=== PATIENT | female | born 1990 ===

== ENCOUNTER 2019-10-29 05:31 | Inpatient (IN) | payer OTHER ==
[2019-10-29] MEDS ORDERED: LACTATED RINGERS 2,000 ML ONE (06:42)
[2019-10-29] MEDS ORDERED: LIDOCAINE (2%) 20 MG/1 ML VIAL 20 ML MDV INFILTRATI ONE (06:58)
[2019-10-29] MEDS ORDERED: ePHEDrine SULFATE 50 MG/1 ML INJ IV PRN ×2 (06:58→12:44)
[2019-10-29] MEDS ORDERED: TERBUTALINE 1 MG/1 ML INJ SUB-Q PRN (06:58)
[2019-10-29] MEDS ORDERED: OXYTOCIN 20 UNIT/1000ML DRIP 20 UNITS/1,000 ML BAG IV SCH ×3 (07:00→19:00)
[2019-10-29] MEDS ORDERED: LACTATED RINGERS 1,000 ML IV SCH ×2 (07:00→18:00)
--- NOTE | 2019-10-29 07:06 | History and Physical Report ---
History of Present Illness Date of examination: 10/29/19 Date of admission: 10/29/2019 Chief complaint: Leaking of water. History of present illness: 28 year old female complains of leaking of water from vagina since 04:30 this AM. Patient reports contractions. LMP 01/24/2019. EDC 10/31/2019. Patient received care and records are available. significant for the following: hypothyroidism (patient has been taking levothyroxine 25 micrograms), gestational thrombocytopenia, and obesity. labs are as follows: O+, antibody screen negative, rubella immune, hepatitis B surface antigen negative, RPR nonreactive, HIV negative, gonorrhea negative, chlamydia negative, quad screen negative, GBS negative, 1 hour sugar test 94. Past History Past Medical History: thyroid disease, other (obesity) Past Surgical History: no surgical history [employer] History: denies: chlamydia, gonorrhea, hepatitis B, herpes, HIV, syphilis, trichomonas Family/Genetic History: hypertension Social history: , lives with family, full code. denies: smoking, alcohol abuse, prescription drug abuse, IV drug use - Obstetrical History Expected Date of Delivery: 10/31/19 Actual Gestation: 39 Week(s) 5 Day(s) : 1 Para: 0 Hx # Term Pregnancies: 0 Number of Pregnancies: 0 Spontaneous Abortions: 0 Induced : 0 Number of Living Children: 0 Medications and Allergies Allergies Allergy/AdvReac Type Severity Reaction Status Date / Time No Known Allergies Allergy Verified 10/29/19 05:38 Review of Systems All systems: negative (leaking of water from vagina, contractions) - Vital Signs Vital signs: Vital Signs Pulse BP Pulse Ox 95 H 116/77 98 10/29/19 05:45 10/29/19 05:45 10/29/19 05:45 Temp Pulse Resp BP Pulse Ox 92 H 18 111/72 95 10/29/19 06:55 10/29/19 06:33 10/29/19 06:47 10/29/19 06:55 - Physical Exam Abdomen: Positive: normal appearance, soft. Negative: distention, tenderness, guarding, rigidity Genitourinary (Female): Positive: normal external genitalia, normal perenium. Negative: perineal/vulvar lesions (no lesions seen on careful exam with bright light upon admission) Vagina: Positive: other (meconium stained fluid seen leaking from vagina) Uterus: Positive: enlarged. Negative: tender Anus/Rectum: Positive: normal perianal skin Extremities: Positive: normal - Obstetrical FHR: category 1 Uterine Contraction Monitor Mode: External Cervical Dilatation: 3 Cervical Effacement Percentage: 90 station: -3 Uterine Contraction Pattern: Regular Uterine Contraction Intensity: Moderate Results Result Diagrams: 10/29/19 05:42 All other labs normal. Assessment and Plan A: and 39 weeks, 5 days gestation. GBS negative. Spontaneous rupture of membranes with meconium stained fluid. Early labor. P: Admit. Continuous EFM.
[2019-10-29] MEDS ORDERED: ONDANSETRON 4 MG/2 ML INJ IV PRN ×2 (07:37→18:43)
[2019-10-29] MEDS: fentaNYL 100 MCG/2 ML INJ IV PRN ×2 (07:44→09:52)
[2019-10-29 07:47] LABS: Hematocrit 44.5 % (30.3-42.9); Hemoglobin 14.4 gm/dl (10.1-14.3); Mean Corpuscular HGB Conc 32 % (30-34); Mean Corpuscular Volume 88 fl (79-97); Red Blood Count 5.04 M/mm3 (3.65-5.03)
[2019-10-29 07:48] LABS: Platelet Count 128 K/mm3 (140-440)
--- NOTE | 2019-10-29 11:10 | Progress Note ---
Subjective - Subjective Date of service: 10/29/19 Principal diagnosis: active labor Interval history: FHT Category 1 Cervix 7cm/100%/-2 [place]: Q2 minutes plan for epidural /maternal well being reassuring Marycarmen MOSLEY Objective - Vital Signs Vital Signs: Vital Signs - 12hr 10/29/19 10/29/19 10/29/19 05:45 05:46 05:50 Pulse Rate 95 H 126 H 101 H Respiratory Rate Blood Pressure 116/77 Blood Pressure [Right] O2 Sat by Pulse 98 94 95 Oximetry 10/29/19 10/29/19 10/29/19 05:55 06:00 06:05 Pulse Rate 76 74 74 Respiratory Rate Blood Pressure 107/75 Blood Pressure [Right] O2 Sat by Pulse 96 96 96 Oximetry 10/29/19 10/29/19 10/29/19 06:10 06:15 06:20 Pulse Rate 74 110 H 85 Respiratory Rate Blood Pressure 110/76 Blood Pressure [Right] O2 Sat by Pulse 95 96 96 Oximetry 10/29/19 10/29/19 10/29/19 06:25 06:30 06:33 Pulse Rate 83 77 71 Respiratory 18 Rate Blood Pressure 119/81 Blood Pressure 119/81 [Right] O2 Sat by Pulse 96 97 97 Oximetry 10/29/19 10/29/19 10/29/19 06:35 06:40 06:45 Pulse Rate 80 73 79 Respiratory Rate Blood Pressure Blood Pressure [Right] O2 Sat by Pulse 97 95 97 Oximetry 10/29/19 10/29/19 10/29/19 06:47 06:50 06:51 Pulse Rate 73 83 87 Respiratory Rate Blood Pressure 111/72 Blood Pressure [Right] O2 Sat by Pulse 95 94 Oximetry 10/29/19 10/29/19 10/29/19 06:55 07:01 07:02 Pulse Rate 92 H 92 H 84 Respiratory Rate Blood Pressure 115/75 Blood Pressure [Right] O2 Sat by Pulse 95 98 Oximetry 10/29/19 10/29/19 10/29/19 07:06 07:11 07:15 Pulse Rate 77 79 85 Respiratory Rate Blood Pressure 112/75 Blood Pressure [Right] O2 Sat by Pulse 99 98 Oximetry 10/29/19 10/29/19 10/29/19 07:16 07:21 07:26 Pulse Rate 75 82 77 Respiratory Rate Blood Pressure Blood Pressure [Right] O2 Sat by Pulse 99 98 98 Oximetry 10/29/19 10/29/19 10/29/19 07:31 07:36 07:41 Pulse Rate 79 75 77 Respiratory Rate Blood Pressure 121/62 Blood Pressure [Right] O2 Sat by Pulse 99 96 98 Oximetry 10/29/19 10/29/19 10/29/19 07:44 07:46 07:47 Pulse Rate 79 76 Respiratory 20 Rate Blood Pressure 112/70 Blood Pressure [Right] O2 Sat by Pulse 97 Oximetry 10/29/19 10/29/19 10/29/19 07:50 07:51 07:56 Pulse Rate 76 73 70 Respiratory Rate Blood Pressure Blood Pressure [Right] O2 Sat by Pulse 94 96 94 Oximetry 10/29/19 10/29/19 10/29/19 08:01 08:03 08:06 Pulse Rate 75 71 73 Respiratory Rate Blood Pressure 117/72 Blood Pressure [Right] O2 Sat by Pulse 94 94 95 Oximetry 10/29/19 10/29/19 10/29/19 08:09 08:11 08:14 Pulse Rate 75 72 74 Respiratory Rate Blood Pressure Blood Pressure [Right] O2 Sat by Pulse 94 95 94 Oximetry 10/29/19 10/29/19 10/29/19 08:16 08:20 08:21 Pulse Rate 79 76 74 Respiratory Rate Blood Pressure 111/71 Blood Pressure [Right] O2 Sat by Pulse 95 93 95 Oximetry 10/29/19 10/29/19 10/29/19 08:26 08:30 08:31 Pulse Rate 73 74 68 Respiratory Rate Blood Pressure 118/72 Blood Pressure [Right] O2 Sat by Pulse 94 97 Oximetry 10/29/19 10/29/19 10/29/19 08:32 08:36 08:41 Pulse Rate 81 76 74 Respiratory Rate Blood Pressure Blood Pressure [Right] O2 Sat by Pulse 94 96 96 Oximetry 10/29/19 10/29/19 10/29/19 08:46 08:51 08:53 Pulse Rate 73 80 74 Respiratory Rate Blood Pressure 119/74 Blood Pressure [Right] O2 Sat by Pulse 93 96 94 Oximetry 10/29/19 10/29/19 10/29/19 08:56 08:58 09:00 Pulse Rate 82 77 74 Respiratory Rate Blood Pressure 97/56 Blood Pressure [Right] O2 Sat by Pulse 94 94 Oximetry 10/29/19 10/29/19 10/29/19 09:01 09:04 09:06 Pulse Rate 75 78 76 Respiratory Rate Blood Pressure Blood Pressure [Right] O2 Sat by Pulse 95 94 93 Oximetry 10/29/19 10/29/19 10/29/19 09:10 09:11 09:16 Pulse Rate 76 73 67 Respiratory Rate Blood Pressure Blood Pressure [Right] O2 Sat by Pulse 94 95 95 Oximetry 10/29/19 10/29/19 10/29/19 09:17 09:21 09:26 Pulse Rate 70 79 77 Respiratory Rate Blood Pressure 110/66 Blood Pressure [Right] O2 Sat by Pulse 94 94 Oximetry 10/29/19 10/29/19 10/29/19 09:30 09:31 09:36 Pulse Rate 75 78 88 Respiratory Rate Blood Pressure 114/68 Blood Pressure [Right] O2 Sat by Pulse 95 98 Oximetry 10/29/19 10/29/19 10/29/19 09:40 09:41 09:45 Pulse Rate 73 68 75 Respiratory Rate Blood Pressure 109/61 Blood Pressure [Right] O2 Sat by Pulse 94 94 Oximetry 10/29/19 10/29/19 10/29/19 09:46 09:48 09:51 Pulse Rate 74 74 82 Respiratory Rate Blood Pressure Blood Pressure [Right] O2 Sat by Pulse 95 94 95 Oximetry 10/29/19 10/29/19 10/29/19 09:52 09:56 09:57 Pulse Rate 74 74 Respiratory 18 Rate Blood Pressure Blood Pressure [Right] O2 Sat by Pulse 94 94 Oximetry 10/29/19 10/29/19 10/29/19 10:01 10:02 10:06 Pulse Rate 71 85 75 Respiratory Rate Blood Pressure 101/61 Blood Pressure [Right] O2 Sat by Pulse 96 92 92 Oximetry 10/29/19 10/29/19 10/29/19 10:07 10:11 10:13 Pulse Rate 70 79 69 Respiratory Rate Blood Pressure Blood Pressure [Right] O2 Sat by Pulse 93 94 93 Oximetry 10/29/19 10/29/19 10/29/19 10:15 10:16 10:19 Pulse Rate 74 78 73 Respiratory Rate Blood Pressure 94/54 Blood Pressure [Right] O2 Sat by Pulse 97 94 Oximetry 10/29/19 10/29/19 10/29/19 10:21 10:25 10:26 Pulse Rate 79 78 74 Respiratory Rate Blood Pressure Blood Pressure [Right] O2 Sat by Pulse 95 93 94 Oximetry 10/29/19 10/29/19 10/29/19 10:31 10:32 10:36 Pulse Rate 77 73 81 Respiratory Rate Blood Pressure 122/57 Blood Pressure [Right] O2 Sat by Pulse 99 94 98 Oximetry 10/29/19 10/29/19 10/29/19 10:38 10:41 10:45 Pulse Rate 81 81 79 Respiratory Rate Blood Pressure 106/58 Blood Pressure [Right] O2 Sat by Pulse 94 95 93 Oximetry 10/29/19 10/29/19 10/29/19 10:46 10:50 10:51 Pulse Rate 72 80 77 Respiratory Rate Blood Pressure Blood Pressure [Right] O2 Sat by Pulse 93 94 96 Oximetry 10/29/19 10/29/19 10/29/19 10:56 11:01 11:02 Pulse Rate 83 82 85 Respiratory Rate Blood Pressure 114/58 Blood Pressure [Right] O2 Sat by Pulse 95 97 Oximetry 10/29/19 11:06 Pulse Rate 72 Respiratory Rate Blood Pressure Blood Pressure [Right] O2 Sat by Pulse 96 Oximetry - Labs Labs: Abnormal Labs 10/29/19 05:42 RBC 5.04 H Hgb 14.4 H Hct 44.5 H Plt Count 128 L Laboratory Results - last 24 hr 10/29/19 10/29/19 05:42 08:40 WBC 7.3 RBC 5.04 H Hgb 14.4 H Hct 44.5 H MCV 88 MCH 29 MCHC 32 RDW 15.0 Plt Count 128 L Blood Type O POSITIVE Antibody Screen Negative
[2019-10-29] MEDS ORDERED: NALOXONE 2 MG/2 ML INJ IV PRN (12:44)
--- NOTE | 2019-10-29 12:53 | Anesthesia Consultation ---
Anesthesia Consult and Med Hx Date of service: 10/29/19 - Airway Anesthetic Teeth Evaluation: Poor ROM Head & Neck: Adequate Mental/Hyoid Distance: Adequate Mallampati Class: Class II Intubation Access Assessment: Probably Good - Pulmonary Exam CTA: Yes - Cardiac Exam Cardiac Exam: RRR - Pre-Operative Health Status ASA Pre-Surgery Classification: ASA2 Proposed Anesthetic Plan: Epidural - Pulmonary Hx Smoking: No Hx Asthma: No Hx Respiratory Symptoms: No SOB: No COPD: No Home Oxygen Therapy: No Hx Pneumonia: No Hx Sleep Apnea: No - Cardiovascular System Hx Hypertension: No Hx Coronary Artery Disease: No Hx Heart Attack/AMI: No Hx Angina: No Hx Percutaneous Transluminal Coronary Angioplasty (PTCA): No Hx Cardia Arrhythmia: No Hx Pacemaker: No Hx Internal Defibrillator: No Hx Valvular Heart Disease: No Hx Heart Murmur: No Hx Peripheral Vascular Disease: No - Central Nervous System Hx Neuromuscular Disorder: No Hx Seizures: No CVA: No Hx Back Pain: No Hx Psychiatric Problems: No - Gastrointestinal Hx Ulcer: No Hx Gastroesophageal Reflux Disease: No - Endocrine Hx Renal Disease: No Hx End Stage Renal Disease: No Hx Cirrhosis: No Hx Liver Disease: No Hx Insulin Dependent Diabetes: No Hx Non-Insulin Dependent Diabetes: No Hx Thyroid Disease: No Hx Hypothyroidism: No Hx Hyperthyroidism: No - Hematic Hx Anemia: No Hx Sickle Cell Disease: No - Other Systems Hx Alcohol Use: No Hx Substance Use: No Hx Cancer: No Hx Obesity: No
[2019-10-29] MEDS ORDERED: fentaNYL-BUPIV 2 MCG/ML-0.125% 200 MCG/100 ML BAG EPIDURAL SCH (13:00)
--- NOTE | 2019-10-29 14:25 | Event Note ---
Date: 10/29/19 Several deep variable FHR decelerations noted; position change, fluid bolus, and oxygen per face mask instituted. Variability moderate. Normal baseline FHR. SVE 9/-1 to -2. No response to position change. IUPC placed and amnioinfusion started. FSE placed. Dose of terbutaline given to slow contractions. Called Dr. Gil and notified her of FHR tracing and interventions performed. Dr. Gil on her way in to evaluate patient.
[2019-10-29] MEDS ORDERED: SODIUM CHLORIDE 0.9% 1000 ML 1,000 ML VG SCH (14:30)
--- NOTE | 2019-10-29 15:28 | Progress Note ---
Subjective - Subjective Date of service: 10/29/19 Principal diagnosis: active labor Interval history: Patient with deep variables to 80bpm lasting 30 seconds with return to baseline FHT improved with amnio-infusion and one dose of terbutaline cervix right lip,100%/+1, minimal caput, good descent with pushing patient placed on right side with O2 per face mask plan for CFM, expect will continue to monitor Maycol Gil MD Objective - Vital Signs Vital Signs: Vital Signs - 12hr 10/29/19 10/29/19 10/29/19 05:45 05:46 05:50 Pulse Rate 95 H 126 H 101 H Respiratory Rate Blood Pressure 116/77 Blood Pressure [Right] O2 Sat by Pulse 98 94 95 Oximetry 10/29/19 10/29/19 10/29/19 05:55 06:00 06:05 Pulse Rate 76 74 74 Respiratory Rate Blood Pressure 107/75 Blood Pressure [Right] O2 Sat by Pulse 96 96 96 Oximetry 10/29/19 10/29/19 10/29/19 06:10 06:15 06:20 Pulse Rate 74 110 H 85 Respiratory Rate Blood Pressure 110/76 Blood Pressure [Right] O2 Sat by Pulse 95 96 96 Oximetry 10/29/19 10/29/19 10/29/19 06:25 06:30 06:33 Pulse Rate 83 77 71 Respiratory 18 Rate Blood Pressure 119/81 Blood Pressure 119/81 [Right] O2 Sat by Pulse 96 97 97 Oximetry 10/29/19 10/29/19 10/29/19 06:35 06:40 06:45 Pulse Rate 80 73 79 Respiratory Rate Blood Pressure Blood Pressure [Right] O2 Sat by Pulse 97 95 97 Oximetry 10/29/19 10/29/19 10/29/19 06:47 06:50 06:51 Pulse Rate 73 83 87 Respiratory Rate Blood Pressure 111/72 Blood Pressure [Right] O2 Sat by Pulse 95 94 Oximetry 10/29/19 10/29/19 10/29/19 06:55 07:01 07:02 Pulse Rate 92 H 92 H 84 Respiratory Rate Blood Pressure 115/75 Blood Pressure [Right] O2 Sat by Pulse 95 98 Oximetry 10/29/19 10/29/19 10/29/19 07:06 07:11 07:15 Pulse Rate 77 79 85 Respiratory Rate Blood Pressure 112/75 Blood Pressure [Right] O2 Sat by Pulse 99 98 Oximetry 10/29/19 10/29/19 10/29/19 07:16 07:21 07:26 Pulse Rate 75 82 77 Respiratory Rate Blood Pressure Blood Pressure [Right] O2 Sat by Pulse 99 98 98 Oximetry 10/29/19 10/29/19 10/29/19 07:31 07:36 07:41 Pulse Rate 79 75 77 Respiratory Rate Blood Pressure 121/62 Blood Pressure [Right] O2 Sat by Pulse 99 96 98 Oximetry 10/29/19 10/29/19 10/29/19 07:44 07:46 07:47 Pulse Rate 79 76 Respiratory 20 Rate Blood Pressure 112/70 Blood Pressure [Right] O2 Sat by Pulse 97 Oximetry 10/29/19 10/29/19 10/29/19 07:50 07:51 07:56 Pulse Rate 76 73 70 Respiratory Rate Blood Pressure Blood Pressure [Right] O2 Sat by Pulse 94 96 94 Oximetry 10/29/19 10/29/19 10/29/19 08:01 08:03 08:06 Pulse Rate 75 71 73 Respiratory Rate Blood Pressure 117/72 Blood Pressure [Right] O2 Sat by Pulse 94 94 95 Oximetry 10/29/19 10/29/19 10/29/19 08:09 08:11 08:14 Pulse Rate 75 72 74 Respiratory Rate Blood Pressure Blood Pressure [Right] O2 Sat by Pulse 94 95 94 Oximetry 10/29/19 10/29/19 10/29/19 08:16 08:20 08:21 Pulse Rate 79 76 74 Respiratory Rate Blood Pressure 111/71 Blood Pressure [Right] O2 Sat by Pulse 95 93 95 Oximetry 10/29/19 10/29/19 10/29/19 08:26 08:30 08:31 Pulse Rate 73 74 68 Respiratory Rate Blood Pressure 118/72 Blood Pressure [Right] O2 Sat by Pulse 94 97 Oximetry 10/29/19 10/29/19 10/29/19 08:32 08:36 08:41 Pulse Rate 81 76 74 Respiratory Rate Blood Pressure Blood Pressure [Right] O2 Sat by Pulse 94 96 96 Oximetry 10/29/19 10/29/19 10/29/19 08:46 08:51 08:53 Pulse Rate 73 80 74 Respiratory Rate Blood Pressure 119/74 Blood Pressure [Right] O2 Sat by Pulse 93 96 94 Oximetry 10/29/19 10/29/1910/28/20 08:56 08:58 09:00 Pulse Rate 82 77 74 Respiratory Rate Blood Pressure 97/56 Blood Pressure [Right] O2 Sat by Pulse 94 94 Oximetry 10/29/19 10/29/19 10/29/19 09:01 09:04 09:06 Pulse Rate 75 78 76 Respiratory Rate Blood Pressure Blood Pressure [Right] O2 Sat by Pulse 95 94 93 Oximetry 10/29/19 10/29/19 10/29/19 09:10 09:11 09:16 Pulse Rate 76 73 67 Respiratory Rate Blood Pressure Blood Pressure [Right] O2 Sat by Pulse 94 95 95 Oximetry 10/29/19 10/29/19 10/29/19 09:17 09:21 09:26 Pulse Rate 70 79 77 Respiratory Rate Blood Pressure 110/66 Blood Pressure [Right] O2 Sat by Pulse 94 94 Oximetry 10/29/19 10/29/19 10/29/19 09:30 09:31 09:36 Pulse Rate 75 78 88 Respiratory Rate Blood Pressure 114/68 Blood Pressure [Right] O2 Sat by Pulse 95 98 Oximetry 10/29/19 10/29/19 10/29/19 09:40 09:41 09:45 Pulse Rate 73 68 75 Respiratory Rate Blood Pressure 109/61 Blood Pressure [Right] O2 Sat by Pulse 94 94 Oximetry 10/29/19 10/29/19 10/29/19 09:46 09:48 09:51 Pulse Rate 74 74 82 Respiratory Rate Blood Pressure Blood Pressure [Right] O2 Sat by Pulse 95 94 95 Oximetry 10/29/19 10/29/19 10/29/19 09:52 09:56 09:57 Pulse Rate 74 74 Respiratory 18 Rate Blood Pressure Blood Pressure [Right] O2 Sat by Pulse 94 94 Oximetry 10/29/19 10/29/19 10/29/19 10:01 10:02 10:06 Pulse Rate 71 85 75 Respiratory Rate Blood Pressure 101/61 Blood Pressure [Right] O2 Sat by Pulse 96 92 92 Oximetry 10/29/19 10/29/19 10/29/19 10:07 10:11 10:13 Pulse Rate 70 79 69 Respiratory Rate Blood Pressure Blood Pressure [Right] O2 Sat by Pulse 93 94 93 Oximetry 10/29/19 10/29/19 10/29/19 10:15 10:16 10:19 Pulse Rate 74 78 73 Respiratory Rate Blood Pressure 94/54 Blood Pressure [Right] O2 Sat by Pulse 97 94 Oximetry 10/29/19 10/29/19 10/29/19 10:21 10:25 10:26 Pulse Rate 79 78 74 Respiratory Rate Blood Pressure Blood Pressure [Right] O2 Sat by Pulse 95 93 94 Oximetry 10/29/19 10/29/19 10/29/19 10:31 10:32 10:36 Pulse Rate 77 73 81 Respiratory Rate Blood Pressure 122/57 Blood Pressure [Right] O2 Sat by Pulse 99 94 98 Oximetry 10/29/19 10/29/19 10/29/19 10:38 10:41 10:45 Pulse Rate 81 81 79 Respiratory Rate Blood Pressure 106/58 Blood Pressure [Right] O2 Sat by Pulse 94 95 93 Oximetry 10/29/19 10/29/19 10/29/19 10:46 10:50 10:51 Pulse Rate 72 80 77 Respiratory Rate Blood Pressure Blood Pressure [Right] O2 Sat by Pulse 93 94 96 Oximetry 10/29/19 10/29/19 10/29/19 10:56 11:01 11:02 Pulse Rate 83 82 85 Respiratory Rate Blood Pressure 114/58 Blood Pressure [Right] O2 Sat by Pulse 95 97 Oximetry 10/29/19 10/29/19 10/29/19 11:06 11:09 11:11 Pulse Rate 72 70 71 Respiratory Rate Blood Pressure Blood Pressure [Right] O2 Sat by Pulse 96 94 95 Oximetry 10/29/19 10/29/19 10/29/19 11:16 11:17 11:21 Pulse Rate 75 80 79 Respiratory Rate Blood Pressure 114/72 Blood Pressure [Right] O2 Sat by Pulse 94 96 Oximetry 10/29/19 10/29/19 10/29/19 11:24 11:26 11:30 Pulse Rate 93 H 84 97 H Respiratory Rate Blood Pressure Blood Pressure [Right] O2 Sat by Pulse 93 90 94 Oximetry 10/29/19 10/29/19 10/29/19 11:31 11:33 11:36 Pulse Rate 82 87 79 Respiratory Rate Blood Pressure 114/54 Blood Pressure [Right] O2 Sat by Pulse 93 87 Oximetry 10/29/19 10/29/19 10/29/19 11:38 11:42 11:43 Pulse Rate 84 83 94 H Respiratory Rate Blood Pressure Blood Pressure [Right] O2 Sat by Pulse 95 88 88 Oximetry 10/29/19 10/29/19 10/29/19 11:48 11:51 11:53 Pulse Rate 88 106 H 106 H Respiratory Rate Blood Pressure 88/52 Blood Pressure [Right] O2 Sat by Pulse 95 95 Oximetry 10/29/19 10/29/19 10/29/19 11:58 12:00 12:03 Pulse Rate 70 58 L 92 H Respiratory Rate Blood Pressure 127/73 97/56 Blood Pressure [Right] O2 Sat by Pulse 100 99 Oximetry 10/29/19 10/29/19 10/29/19 12:05 12:07 12:08 Pulse Rate 73 66 90 Respiratory Rate Blood Pressure 104/66 96/52 Blood Pressure [Right] O2 Sat by Pulse 100 Oximetry 10/29/19 10/29/19 10/29/19 12:09 12:11 12:13 Pulse Rate 89 98 H 62 Respiratory Rate Blood Pressure 85/54 87/58 Blood Pressure [Right] O2 Sat by Pulse 100 Oximetry 10/29/19 10/29/19 10/29/19 12:18 12:23 12:28 Pulse Rate 72 94 H 119 H Respiratory Rate Blood Pressure Blood Pressure [Right] O2 Sat by Pulse 100 100 100 Oximetry 10/29/19 10/29/19 10/29/19 12:33 12:38 12:43 Pulse Rate 120 H 104 H 106 H Respiratory Rate Blood Pressure 102/64 Blood Pressure [Right] O2 Sat by Pulse 99 95 99 Oximetry 10/29/19 10/29/19 10/29/19 12:44 12:48 12:53 Pulse Rate 121 H 79 113 H Respiratory Rate Blood Pressure Blood Pressure [Right] O2 Sat by Pulse 88 100 100 Oximetry 10/29/19 10/29/19 10/29/19 12:58 13:03 13:08 Pulse Rate 59 L 72 84 Respiratory Rate Blood Pressure Blood Pressure [Right] O2 Sat by Pulse 98 100 100 Oximetry 10/29/19 10/29/19 10/29/19 13:13 13:18 13:23 Pulse Rate 77 73 89 Respiratory Rate Blood Pressure 122/76 Blood Pressure [Right] O2 Sat by Pulse 98 100 100 Oximetry 10/29/19 10/29/19 10/29/19 13:28 13:33 13:38 Pulse Rate 113 H 76 73 Respiratory Rate Blood Pressure Blood Pressure [Right] O2 Sat by Pulse 99 99 98 Oximetry 10/29/19 10/29/19 10/29/19 13:42 13:43 13:48 Pulse Rate 73 73 79 Respiratory Rate Blood Pressure 128/77 Blood Pressure [Right] O2 Sat by Pulse 97 98 Oximetry 10/29/19 10/29/19 10/29/19 13:53 13:58 14:03 Pulse Rate 80 82 83 Respiratory Rate Blood Pressure Blood Pressure [Right] O2 Sat by Pulse 98 97 99 Oximetry 10/29/19 10/29/19 10/29/19 14:08 14:12 14:13 Pulse Rate 76 81 79 Respiratory Rate Blood Pressure 129/79 Blood Pressure [Right] O2 Sat by Pulse 99 98 Oximetry 10/29/19 10/29/19 10/29/19 14:18 14:23 14:28 Pulse Rate 81 98 H 82 Respiratory Rate Blood Pressure Blood Pressure [Right] O2 Sat by Pulse 97 98 99 Oximetry 10/29/19 10/29/19 10/29/19 14:33 14:38 14:42 Pulse Rate 78 103 H 117 H Respiratory Rate Blood Pressure 118/79 Blood Pressure [Right] O2 Sat by Pulse 98 98 Oximetry 10/29/19 10/29/19 10/29/19 14:43 14:48 14:53 Pulse Rate 97 H 122 H 98 H Respiratory Rate Blood Pressure Blood Pressure [Right] O2 Sat by Pulse 100 100 100 Oximetry 10/29/19 10/29/19 10/29/19 14:58 15:03 15:08 Pulse Rate 131 H 113 H 118 H Respiratory Rate Blood Pressure Blood Pressure [Right] O2 Sat by Pulse 98 99 98 Oximetry 10/29/19 10/29/19 10/29/19 15:12 15:13 15:18 Pulse Rate 116 H 97 H 110 H Respiratory Rate Blood Pressure 112/66 Blood Pressure [Right] O2 Sat by Pulse 99 100 Oximetry - Labs Labs: Abnormal Labs 10/29/19 05:42 RBC 5.04 H Hgb 14.4 H Hct 44.5 H Plt Count 128 L Laboratory Results - last 24 hr 10/29/19 10/29/19 05:42 08:40 WBC 7.3 RBC 5.04 H Hgb 14.4 H Hct 44.5 H MCV 88 MCH 29 MCHC 32 RDW 15.0 Plt Count 128 L Blood Type O POSITIVE Antibody Screen Negative
[2019-10-29] MEDS ORDERED: ACETAMINOPHEN 325 MG TAB PO ONE (16:00)
[2019-10-29] MEDS ORDERED: AMPICILLIN/NS 2 GM/100 ML 2 GM/100 ML BAG IV ONE (16:00)
[2019-10-29] MEDS ORDERED: OXYTOCIN DRIP 30,000 MILLIUNITS/500 ML BAG IV ONE (16:05)
--- NOTE | 2019-10-29 16:11 | Progress Note ---
Subjective - Subjective Date of service: 10/29/19 Principal diagnosis: active labor Interval history: variables resolved FHT 150,moderate variability [place] Q3-4 minutes Cervix 9cm/100%/-2 plan for oxytocin at 2mu/min recheck in one hour amp for prolonged rupture of membranes maternal/ well being reassuring overall. Maycol Gil MD Objective - Vital Signs Vital Signs: Vital Signs - 12hr 10/29/19 10/29/19 10/29/19 05:45 05:46 05:50 Pulse Rate 95 H 126 H 101 H Respiratory Rate Blood Pressure 116/77 Blood Pressure [Right] O2 Sat by Pulse 98 94 95 Oximetry 10/29/19 10/29/19 10/29/19 05:55 06:00 06:05 Pulse Rate 76 74 74 Respiratory Rate Blood Pressure 107/75 Blood Pressure [Right] O2 Sat by Pulse 96 96 96 Oximetry 10/29/19 10/29/19 10/29/19 06:10 06:15 06:20 Pulse Rate 74 110 H 85 Respiratory Rate Blood Pressure 110/76 Blood Pressure [Right] O2 Sat by Pulse 95 96 96 Oximetry 10/29/19 10/29/19 10/29/19 06:25 06:30 06:33 Pulse Rate 83 77 71 Respiratory 18 Rate Blood Pressure 119/81 Blood Pressure 119/81 [Right] O2 Sat by Pulse 96 97 97 Oximetry 10/29/19 10/29/19 10/29/19 06:35 06:40 06:45 Pulse Rate 80 73 79 Respiratory Rate Blood Pressure Blood Pressure [Right] O2 Sat by Pulse 97 95 97 Oximetry 10/29/19 10/29/19 10/29/19 06:47 06:50 06:51 Pulse Rate 73 83 87 Respiratory Rate Blood Pressure 111/72 Blood Pressure [Right] O2 Sat by Pulse 95 94 Oximetry 10/29/19 10/29/19 10/29/19 06:55 07:01 07:02 Pulse Rate 92 H 92 H 84 Respiratory Rate Blood Pressure 115/75 Blood Pressure [Right] O2 Sat by Pulse 95 98 Oximetry 10/29/19 10/29/19 10/29/19 07:06 07:11 07:15 Pulse Rate 77 79 85 Respiratory Rate Blood Pressure 112/75 Blood Pressure [Right] O2 Sat by Pulse 99 98 Oximetry 10/29/19 10/29/19 10/29/19 07:16 07:21 07:26 Pulse Rate 75 82 77 Respiratory Rate Blood Pressure Blood Pressure [Right] O2 Sat by Pulse 99 98 98 Oximetry 10/29/19 10/29/19 10/29/19 07:31 07:36 07:41 Pulse Rate 79 75 77 Respiratory Rate Blood Pressure 121/62 Blood Pressure [Right] O2 Sat by Pulse 99 96 98 Oximetry 10/29/19 10/29/19 10/29/19 07:44 07:46 07:47 Pulse Rate 79 76 Respiratory 20 Rate Blood Pressure 112/70 Blood Pressure [Right] O2 Sat by Pulse 97 Oximetry 10/29/19 10/29/19 10/29/19 07:50 07:51 07:56 Pulse Rate 76 73 70 Respiratory Rate Blood Pressure Blood Pressure [Right] O2 Sat by Pulse 94 96 94 Oximetry 10/29/19 10/29/19 10/29/19 08:01 08:03 08:06 Pulse Rate 75 71 73 Respiratory Rate Blood Pressure 117/72 Blood Pressure [Right] O2 Sat by Pulse 94 94 95 Oximetry 10/29/19 10/29/19 10/29/19 08:09 08:11 08:14 Pulse Rate 75 72 74 Respiratory Rate Blood Pressure Blood Pressure [Right] O2 Sat by Pulse 94 95 94 Oximetry 10/29/19 10/29/19 10/29/19 08:16 08:20 08:21 Pulse Rate 79 76 74 Respiratory Rate Blood Pressure 111/71 Blood Pressure [Right] O2 Sat by Pulse 95 93 95 Oximetry 10/29/19 10/29/19 10/29/19 08:26 08:30 08:31 Pulse Rate 73 74 68 Respiratory Rate Blood Pressure 118/72 Blood Pressure [Right] O2 Sat by Pulse 94 97 Oximetry 10/29/19 10/29/19 10/29/19 08:32 08:36 08:41 Pulse Rate 81 76 74 Respiratory Rate Blood Pressure Blood Pressure [Right] O2 Sat by Pulse 94 96 96 Oximetry 10/29/19 10/29/19 10/29/19 08:46 08:51 08:53 Pulse Rate 73 80 74 Respiratory Rate Blood Pressure 119/74 Blood Pressure [Right] O2 Sat by Pulse 93 96 94 Oximetry 10/29/19 10/29/19 10/29/19 08:56 08:58 09:00 Pulse Rate 82 77 74 Respiratory Rate Blood Pressure 97/56 Blood Pressure [Right] O2 Sat by Pulse 94 94 Oximetry 10/29/19 10/29/19 10/29/19 09:01 09:04 09:06 Pulse Rate 75 78 76 Respiratory Rate Blood Pressure Blood Pressure [Right] O2 Sat by Pulse 95 94 93 Oximetry 10/29/19 10/29/19 10/29/19 09:10 09:11 09:16 Pulse Rate 76 73 67 Respiratory Rate Blood Pressure Blood Pressure [Right] O2 Sat by Pulse 94 95 95 Oximetry 10/29/19 10/29/19 10/29/19 09:17 09:21 09:26 Pulse Rate 70 79 77 Respiratory Rate Blood Pressure 110/66 Blood Pressure [Right] O2 Sat by Pulse 94 94 Oximetry 10/29/19 10/29/19 10/29/19 09:30 09:31 09:36 Pulse Rate 75 78 88 Respiratory Rate Blood Pressure 114/68 Blood Pressure [Right] O2 Sat by Pulse 95 98 Oximetry 10/29/19 10/29/19 10/29/19 09:40 09:41 09:45 Pulse Rate 73 68 75 Respiratory Rate Blood Pressure 109/61 Blood Pressure [Right] O2 Sat by Pulse 94 94 Oximetry 10/29/19 10/29/19 10/29/19 09:46 09:48 09:51 Pulse Rate 74 74 82 Respiratory Rate Blood Pressure Blood Pressure [Right] O2 Sat by Pulse 95 94 95 Oximetry 10/29/19 10/29/19 10/29/19 09:52 09:56 09:57 Pulse Rate 74 74 Respiratory 18 Rate Blood Pressure Blood Pressure [Right] O2 Sat by Pulse 94 94 Oximetry 10/29/19 10/29/19 10/29/19 10:01 10:02 10:06 Pulse Rate 71 85 75 Respiratory Rate Blood Pressure 101/61 Blood Pressure [Right] O2 Sat by Pulse 96 92 92 Oximetry 10/29/19 10/29/19 10/29/19 10:07 10:11 10:13 Pulse Rate 70 79 69 Respiratory Rate Blood Pressure Blood Pressure [Right] O2 Sat by Pulse 93 94 93 Oximetry 10/29/19 10/29/19 10/29/19 10:15 10:16 10:19 Pulse Rate 74 78 73 Respiratory Rate Blood Pressure 94/54 Blood Pressure [Right] O2 Sat by Pulse 97 94 Oximetry 10/29/19 10/29/19 10/29/19 10:21 10:25 10:26 Pulse Rate 79 78 74 Respiratory Rate Blood Pressure Blood Pressure [Right] O2 Sat by Pulse 95 93 94 Oximetry 10/29/19 10/29/19 10/29/19 10:31 10:32 10:36 Pulse Rate 77 73 81 Respiratory Rate Blood Pressure 122/57 Blood Pressure [Right] O2 Sat by Pulse 99 94 98 Oximetry 10/29/19 10/29/19 10/29/19 10:38 10:41 10:45 Pulse Rate 81 81 79 Respiratory Rate Blood Pressure 106/58 Blood Pressure [Right] O2 Sat by Pulse 94 95 93 Oximetry 10/29/19 10/29/19 10/29/19 10:46 10:50 10:51 Pulse Rate 72 80 77 Respiratory Rate Blood Pressure Blood Pressure [Right] O2 Sat by Pulse 93 94 96 Oximetry 10/29/19 10/29/19 10/29/19 10:56 11:01 11:02 Pulse Rate 83 82 85 Respiratory Rate Blood Pressure 114/58 Blood Pressure [Right] O2 Sat by Pulse 95 97 Oximetry 10/29/19 10/29/19 10/29/19 11:06 11:09 11:11 Pulse Rate 72 70 71 Respiratory Rate Blood Pressure Blood Pressure [Right] O2 Sat by Pulse 96 94 95 Oximetry 10/29/19 10/29/19 10/29/19 11:16 11:17 11:21 Pulse Rate 75 80 79 Respiratory Rate Blood Pressure 114/72 Blood Pressure [Right] O2 Sat by Pulse 94 96 Oximetry 10/29/19 10/29/19 10/29/19 11:24 11:26 11:30 Pulse Rate 93 H 84 97 H Respiratory Rate Blood Pressure Blood Pressure [Right] O2 Sat by Pulse 93 90 94 Oximetry 10/29/19 10/29/19 10/29/19 11:31 11:33 11:36 Pulse Rate 82 87 79 Respiratory Rate Blood Pressure 114/54 Blood Pressure [Right] O2 Sat by Pulse 93 87 Oximetry 10/29/19 10/29/19 10/29/19 11:38 11:42 11:43 Pulse Rate 84 83 94 H Respiratory Rate Blood Pressure Blood Pressure [Right] O2 Sat by Pulse 95 88 88 Oximetry 10/29/19 10/29/19 10/29/19 11:48 11:51 11:53 Pulse Rate 88 106 H 106 H Respiratory Rate Blood Pressure 88/52 Blood Pressure [Right] O2 Sat by Pulse 95 95 Oximetry 10/29/19 10/29/19 10/29/19 11:58 12:00 12:03 Pulse Rate 70 58 L 92 H Respiratory Rate Blood Pressure 127/73 97/56 Blood Pressure [Right] O2 Sat by Pulse 100 99 Oximetry 10/29/19 10/29/19 10/29/19 12:05 12:07 12:08 Pulse Rate 73 66 90 Respiratory Rate Blood Pressure 104/66 96/52 Blood Pressure [Right] O2 Sat by Pulse 100 Oximetry 10/29/19 10/29/19 10/29/19 12:09 12:11 12:13 Pulse Rate 89 98 H 62 Respiratory Rate Blood Pressure 85/54 87/58 Blood Pressure [Right] O2 Sat by Pulse 100 Oximetry 10/29/19 10/29/19 10/29/19 12:18 12:23 12:28 Pulse Rate 72 94 H 119 H Respiratory Rate Blood Pressure Blood Pressure [Right] O2 Sat by Pulse 100 100 100 Oximetry 10/29/19 10/29/19 10/29/19 12:33 12:38 12:43 Pulse Rate 120 H 104 H 106 H Respiratory Rate Blood Pressure 102/64 Blood Pressure [Right] O2 Sat by Pulse 99 95 99 Oximetry 10/29/19 10/29/19 10/29/19 12:44 12:48 12:53 Pulse Rate 121 H 79 113 H Respiratory Rate Blood Pressure Blood Pressure [Right] O2 Sat by Pulse 88 100 100 Oximetry 10/29/19 10/29/19 10/29/19 12:58 13:03 13:08 Pulse Rate 59 L 72 84 Respiratory Rate Blood Pressure Blood Pressure [Right] O2 Sat by Pulse 98 100 100 Oximetry 10/29/19 10/29/19 10/29/19 13:13 13:18 13:23 Pulse Rate 77 73 89 Respiratory Rate Blood Pressure 122/76 Blood Pressure [Right] O2 Sat by Pulse 98 100 100 Oximetry 10/29/19 10/29/19 10/29/19 13:28 13:33 13:38 Pulse Rate 113 H 76 73 Respiratory Rate Blood Pressure Blood Pressure [Right] O2 Sat by Pulse 99 99 98 Oximetry 10/29/19 10/29/1920 13:42 13:43 13:48 Pulse Rate 73 73 79 Respiratory Rate Blood Pressure 128/77 Blood Pressure [Right] O2 Sat by Pulse 97 98 Oximetry 10/29/19 10/29/19 10/29/19 13:53 13:58 14:03 Pulse Rate 80 82 83 Respiratory Rate Blood Pressure Blood Pressure [Right] O2 Sat by Pulse 98 97 99 Oximetry 10/29/19 10/29/19 10/29/19 14:08 14:12 14:13 Pulse Rate 76 81 79 Respiratory Rate Blood Pressure 129/79 Blood Pressure [Right] O2 Sat by Pulse 99 98 Oximetry 10/29/19 10/29/19 10/29/19 14:18 14:23 14:28 Pulse Rate 81 98 H 82 Respiratory Rate Blood Pressure Blood Pressure [Right] O2 Sat by Pulse 97 98 99 Oximetry 10/29/19 10/29/19 10/29/19 14:33 14:38 14:42 Pulse Rate 78 103 H 117 H Respiratory Rate Blood Pressure 118/79 Blood Pressure [Right] O2 Sat by Pulse 98 98 Oximetry 10/29/19 10/29/19 10/29/19 14:43 14:48 14:53 Pulse Rate 97 H 122 H 98 H Respiratory Rate Blood Pressure Blood Pressure [Right] O2 Sat by Pulse 100 100 100 Oximetry 10/29/19 10/29/19 10/29/19 14:58 15:03 15:08 Pulse Rate 131 H 113 H 118 H Respiratory Rate Blood Pressure Blood Pressure [Right] O2 Sat by Pulse 98 99 98 Oximetry 10/29/19 10/29/19 10/29/19 15:12 15:13 15:18 Pulse Rate 116 H 97 H 110 H Respiratory Rate Blood Pressure 112/66 Blood Pressure [Right] O2 Sat by Pulse 99 100 Oximetry 10/29/19 10/29/19 10/29/19 15:23 15:28 15:33 Pulse Rate 117 H 113 H 91 H Respiratory Rate Blood Pressure Blood Pressure [Right] O2 Sat by Pulse 100 100 99 Oximetry 10/29/19 10/29/19 10/29/19 15:38 15:42 15:43 Pulse Rate 116 H 116 H 110 H Respiratory Rate Blood Pressure 110/63 Blood Pressure [Right] O2 Sat by Pulse 100 99 Oximetry 10/29/19 10/29/19 10/29/19 15:48 15:53 15:58 Pulse Rate 97 H 109 H 115 H Respiratory Rate Blood Pressure Blood Pressure [Right] O2 Sat by Pulse 98 99 99 Oximetry 10/29/19 16:03 Pulse Rate 94 H Respiratory Rate Blood Pressure Blood Pressure [Right] O2 Sat by Pulse 99 Oximetry - Labs Labs: Abnormal Labs 10/29/19 05:42 RBC 5.04 H Hgb 14.4 H Hct 44.5 H Plt Count 128 L Laboratory Results - last 24 hr 10/29/19 10/29/19 05:42 08:40 WBC 7.3 RBC 5.04 H Hgb 14.4 H Hct 44.5 H MCV 88 MCH 29 MCHC 32 RDW 15.0 Plt Count 128 L Blood Type O POSITIVE Antibody Screen Negative
[2019-10-29] MEDS ORDERED: OXYTOCIN DRIP 30 UNITS/500 ML BAG IV SCH (17:00)
[2019-10-29] MEDS ORDERED: MINERAL OIL 30 ML ORAL LIQD ONE (17:10)
[2019-10-29] MEDS ORDERED: METOCLOPRAMIDE 10 MG/2 ML INJ ONE (17:29)
[2019-10-29] MEDS ORDERED: FAMOTIDINE 20 MG/2 ML INJ IV ONE ×2 (17:29→18:00)
[2019-10-29] MEDS ORDERED: ceFAZolin/Water 2 GM/20 ML 2 GM/20 ML SYRINGE IV ONE (17:30)
[2019-10-29] MEDS ORDERED: LIDOCAINE 2%/EPINEPHRINE 1:200,000 VIAL (20 ML) INFILTRATI ONE (17:31)
[2019-10-29] MEDS ORDERED: DEXMEDETOMIDINE 200 MCG/2 ML VIAL IV ONE (17:31)
--- NOTE | 2019-10-29 17:31 | Event Note ---
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
[2019-10-29] MEDS ORDERED: propofoL 200 MG/20 ML VIAL IV ONE (17:46)
[2019-10-29] MEDS ORDERED: SODIUM CHLORIDE 0.9% IRR 1,500 ML BOTTLE IR ONE (17:50)
[2019-10-29] MEDS ORDERED: WATER FOR IRRIG STERILE 1,500 ML BOTTLE IR ONE (17:50)
[2019-10-29] MEDS ORDERED: ceFAZolin/STERILE WATER 2 GM/20 ML SYRINGE IV ONE (17:50)
[2019-10-29] MEDS ORDERED: KETOROLAC 30 MG/1 ML INJ ONE (17:59)
[2019-10-29] MEDS ORDERED: SODIUM BICARB 8.4% 50 MEQ/50 ML VIAL IV ONE (17:59)
[2019-10-29] MEDS ORDERED: ONDANSETRON 4 MG/2 ML INJ ONE (17:59)
[2019-10-29] MEDS ORDERED: SUCCINYLCHOLINE CHLORIDE 200 MG/10 ML INJ MDV ONE ×2 (17:59→18:17)
[2019-10-29] MEDS ORDERED: BICITRA ORAL LIQD 30ML PO ONE (18:00)
[2019-10-29] MEDS ORDERED: METOCLOPRAMIDE 10 MG/2 ML INJ IV ONE (18:00)
--- NOTE | 2019-10-29 18:39 | Procedure Note ---
OB Delivery Note - Delivery Date of Delivery: 10/29/19 Surgeon: JUVE MARVIN Estimated blood loss: 500cc - Section Preop diagnosis: arrest of descent, nonreassuring FHR tracing Postop diagnosis: same section procedure: primary low transverse Disposition: PACU Complications: none Narrative: Preoperative diagnosis: NRFHT, arrest of descent Postoperative diagnosis: same Procedure: primary low transverse section via pfannenstiel incision Surgeon : Dr Juve Marvin Assist: scrub Anesthesia: epidural Complications: none Drains: sidhu to gravity EBL 500ml IV fluids: 1200ml Urine output: 100ml Findings:normal uterus, tubes and ovaries bilaterally. Viable female,weight 3229gms, 8,9. Procedure: informed consent taken in 2007 with family present. All questions and concerns addressed. R/B/C reviewed. She was taken to the OR where excellent spinal anesthesia was given. She was placed in the dorsal supine position with a leftward tilt. She was prepped and draped in a sterile fashion. A time out was verified. An Daniella clamp was used to assure adequate analgesia. A Pfannenstiel skin incision was made, taken down through the underlying fascia sharply and extended laterally with curved Merida scissors. The superior and inferior aspect of the fascial incision was grasped with Brenden clamps and the rectus muscles dissected off sharply. The abdomen was entered sharply in the midline and extended laterally and inferiorly sharply with good visualization of the underlying structures. The vesicouterine peritoneum was grasped with Turkmen forceps and incised sharply with Metzenbaum scissors and extended laterlaly sharply. The uterine incision was made sharply with a scalpel, taken down to the amnion and extended inferiorly and superiorly bluntly. The bladder blade removed. Baby delivered atraumatically in cephalic presentation, no nuchal cord. Spontaneous cry at delivery.The cord was clamped and cut and baby handed to waiting NICU staff. An intact placenta with three vessel cord delivered manually. The uterus cleared of all clots and debris. The uterus was exteriorized and the uterine incision closed with 2 layers of 0-Vicryl. The abdomen was irrigated with warm normal saline and the uterus placed back in the abdomen. A second look at the uterine incision assured excellent hemostasis. The peritoneum closed with 3-0 vicryl. The rectus muscles approximated with 3- 0 vicryl with good hemostasis. The fascia closed with 0-Vicryl in the usual fashion, and the underlying structures closed with interrupted suture of 2-0-Vicryl. The skin closed with mary and a pressure dressing applied. Mom and baby stable to . Patient hemodynamically stable in PACU. EBL 500ml Marycarmen MOSLEY
[2019-10-29] MEDS ORDERED: MAGNESIUM HYDROXIDE (MOM) ORAL LIQD UDC PO PRN (18:43)
[2019-10-29] MEDS ORDERED: MORPHINE 4 MG/1 ML INJ IV PRN (18:43)
[2019-10-29] MEDS ORDERED: WITCH HAZEL/ GLYCERIN PAD TP PRN (18:43)
[2019-10-29] MEDS ORDERED: LANOLIN/ZINC/DIMETHICONE (LANSINOH) 7 GM TP PRN (18:43)
[2019-10-29] MEDS ORDERED: SIMETHICONE 80 MG CHEW TAB PO PRN (18:43)
[2019-10-29] MEDS ORDERED: NALOXONE 0.4 MG/1 ML INJ IV PRN (18:43)
[2019-10-29] MEDS ORDERED: MORPHINE 2 MG/1 ML INJ IV PRN (18:43)
--- NOTE | 2019-10-29 19:23 | Post Anesthesia Evaluation ---
- Post Anesthesia Evaluation Patient Participated: Yes Airway Patent: Yes Stable Respiratory Function: Yes Nausea/Vomiting: No Temp > 96.8F: Yes Pain Manageable: Yes Adequeate Hydration: Yes Anesthesia Complications: No Block Receding Appropriately: Yes Patient on Ventilator: No
--- NOTE | 2019-10-29 19:23 | Anesthesia Day of Surgery ---
Anesthesia Day of Surgery - Day of Surgery Patient Examined: Yes Patient H&P Reviewed: Yes Patient is NPO: Yes Beta Blockers: No Cardiac Clearance: No Pulmonary Clearance: No Yaniv's Test: N/A
[2019-10-29] MEDS ORDERED: HYDROmorphone 1 MG/1 ML INJ IV PRN (19:25)
[2019-10-30] MEDS: HYDROcodone/ACETAMINOPHEN 5-325 MG TAB PO PRN ×3 (01:56→15:49)
[2019-10-30 05:10] LABS: Basophils % (Auto) 0.2 % (0.0-1.8); Hematocrit 30.1 % (30.3-42.9); Hemoglobin 10.1 gm/dl (10.1-14.3); Lymphocytes # (Auto) 0.6 K/mm3 (1.2-5.4); Lymphocytes % (Auto) 5.4 % (13.4-35.0); Mean Corpuscular HGB Conc 34 % (30-34); Mean Corpuscular Volume 86 fl (79-97); Monocytes # (Auto) 0.8 K/mm3 (0.0-0.8); Monocytes % (Auto) 6.9 % (0.0-7.3); Platelet Count 101 K/mm3 (140-440); Red Blood Count 3.49 M/mm3 (3.65-5.03); Red Cell Distribution Width 14.1 % (13.2-15.2)
[2019-10-30] MEDS: IBUPROFEN 800 MG TAB PO PRN ×2 (06:07→21:30)
[2019-10-30 09:42] LABS: Hematocrit 30.1 % (30.3-42.9)
--- NOTE | 2019-10-30 11:28 | Progress Note ---
Assessment and Plan A: /postop day 1 S/P LTCS. Anemia. P: Supplement with oral iron when tolerating regular diet. Encouraged patient to ambulate. Subjective - Subjective Date of service: 10/30/19 Principal diagnosis: /postop day 1 S/P LTCS Interval history: /postop day 1 S/P LTCS. Patient is doing well. Voiding without difficulty and ambulating well. Tolerating po liquids. Patient states she has not passed gas yet. Patient reports small amount of lochia. Patient denies headache, chest pain, cough, shortness of breath, or leg pain. Patient reports: appetite normal, voiding normally, pain well controlled, flatus, ambulating normally, no dizzy ambulation, no nauseated : doing well Objective - Vital Signs Latest vital signs: Vital Signs Temp Pulse Resp BP BP Pulse Ox 10/30/19 08:20 98 F 91 H 18 96/53 10/30/19 04:50 98.3 F 92 H 18 102/56 97 10/30/19 01:17 99.0 F 113 H 18 89/48 96 10/29/19 20:30 98.1 F 99 H 18 97/54 98 10/29/19 20:00 97.8 F 103 H 20 108/78 96 10/29/19 19:45 107 H 17 99 10/29/19 19:30 75 13 100/53 97 10/29/19 19:25 94/50 10/29/19 19:20 88/47 10/29/19 19:15 91 H 11 L 79/37 96 10/29/19 19:10 92 H 15 90/46 96 10/29/19 19:05 97.6 F 105 H 14 74/25 95 10/29/19 19:00 89 29 H 87/57 95 10/29/19 17:43 98.9 F 82 18 10/29/19 17:23 115 H 97 10/29/19 17:18 114 H 93 10/29/19 17:13 122 H 119/68 98 10/29/19 17:08 110 H 98 10/29/19 17:03 121 H 96 10/29/19 16:58 126 H 98 10/29/19 16:53 88 97 10/29/19 16:48 86 98 10/29/19 16:44 113 H 109/67 03/21/20 16:43 116 H 97 03//20 16:38 106 H 98 03/20 16:33 115 H 98 03/20 16:28 111 H 99 03/20 16:23 110 H 99 03//20 16:18 116 H 98 03/20 16:13 102 H 114/68 99 03//20 16:08 90 98 03/20 16:03 94 H 99 03/20 15:58 115 H 99 03/20 15:53 109 H 99 03/20 15:48 97 H 98 03/20 15:43 110 H 99 03/20 15:42 116 H 110/63 03/20 15:38 116 H 100 03/20 15:33 91 H 99 03/20 15:28 113 H 100 03/20 15:23 117 H 100 03/20 15:18 110 H 100 03/20 15:13 97 H 99 03/20 15:12 116 H 112/66 03/20 15:08 118 H 98 03/20 15:03 113 H 99 03/20 14:58 131 H 98 03/20 14:53 98 H 100 10/28/20 14:48 122 H 100 10/28/20 14:43 97 H 100 10/28/20 14:42 117 H 118/79 03/20 14:38 103 H 98 03/20 14:33 78 98 03/20 14:28 82 99 03/20 14:23 98 H 98 03/20 14:18 81 97 03/21/20 14:13 79 98 03/21/20 14:12 81 129/79 03/21/20 14:08 76 99 03/21/20 14:03 83 99 03/21/20 13:58 82 97 03/21/20 13:53 80 98 03/21/20 13:48 79 98 03/21/20 13:43 73 97 03/21/20 13:42 73 128/77 03/21/20 13:38 73 98 03/21/20 13:33 76 99 03/21/20 13:28 113 H 99 0321/20 13:23 89 100 03/21/20 13:18 73 100 10/29/19 13:13 77 122/76 98 10/29/19 13:08 84 100 10/29/19 13:03 72 100 10/29/19 12:58 59 L 98 10/29/19 12:53 113 H 100 10/29/19 12:48 79 100 10/29/19 12:44 121 H 88 10/29/19 12:43 106 H 102/64 99 10/29/19 12:38 104 H 95 10/29/19 12:33 120 H 99 10/29/19 12:28 119 H 100 10/29/19 12:23 94 H 100 10/29/19 12:18 72 100 10/29/19 12:13 62 100 10/29/19 12:11 98 H 87/58 10/29/19 12:09 89 85/54 10/29/19 12:08 90 100 10/29/19 12:07 66 96/52 10/29/19 12:05 73 104/66 10/29/19 12:03 92 H 97/56 99 10/29/19 12:00 58 L 127/73 10/29/19 11:58 70 100 10/29/19 11:53 106 H 95 10/29/19 11:51 106 H 88/52 10/29/19 11:48 88 95 10/29/19 11:43 94 H 88 10/29/19 11:42 83 88 10/29/19 11:38 84 95 10/29/19 11:36 79 87 10/29/19 11:33 87 93 10/29/19 11:31 82 114/54 10/29/19 11:30 97 H 94 10/29/19 11:26 84 90 Intake and Output 10/29/19 10/30/19 10/30/19 23:59 07:59 15:59 Intake Total 950 120 320 Output Total 50 1000 600 Balance 900 -880 -280 Intake: IV 950 Oral 120 320 Output: Urine 50 1000 600 Indwelling Catheter 1000 Void 600 Other: Total, Intake Amount 120 320 Total, Output Amount 600 600 # Voids Void 1 Estimated Blood Loss 500 - Exam Cardiovascular: Present: Regular rate, Normal S1, Normal S2, No murmurs Lungs: Present: Clear to auscultation Abdomen: Present: normal appearance, soft, normal bowel sounds. Absent: distention, tenderness, guarding, rigidity Uterus: Present: normal, firm, fundal height below umbilicus. Absent: bogginess, tenderness Extremities: Present: normal, edema (mild pedal edema). Absent: tenderness Incision: Present: normal, dry, intact, dressed - Labs Labs: Abnormal lab results 10/30/19 10/30/19 Range/Units 04:30 08:57 WBC 11.9 H (4.5-11.0) K/mm3 RBC 3.49 L (3.65-5.03) M/mm3 Hgb 10.0 L (10.1-14.3) gm/dl Hct 30.1 L D 30.1 L (30.3-42.9) % Plt Count 101 L (140-440) K/mm3 Lymph % (Auto) 5.4 L (13.4-35.0) % Lymph # 0.6 L (1.2-5.4) K/mm3 Seg Neutrophils % 87.5 H (40.0-70.0) % Seg Neutrophils # 10.4 H (1.8-7.7) K/mm3
[2019-10-30] MEDS ORDERED: FERROUS SULFATE 325 MG TAB PO ONE (22:00)
[2019-10-31] MEDS: HYDROcodone/ACETAMINOPHEN 5-325 MG TAB PO PRN ×2 (03:40→12:43)
--- NOTE | 2019-10-31 11:11 | Progress Note ---
Assessment and Plan - Patient Problems (1) S/P primary low transverse Current Visit: Yes Status: Acute Plan to address problem: POD 2 - stable Continue routine postop orders Ambulation encouraged, as tolerated Anticipate discharge 11/01/19 if bleeding at right incision site stops Patient to follow-up at [facility] as needed or in 1 week for incision check (2) Anemia due to blood loss, acute Current Visit: Yes Status: Acute Plan to address problem: Asymptomatic Continue iron therapy Subjective - Subjective Date of service: 10/31/19 Principal diagnosis: POD #2; s/p Primary LTCS Patient reports: appetite normal, voiding normally, pain well controlled, flatus, bowel movement, ambulating normally, no dizzy ambulation Mallard: in NICU Objective - Vital Signs Latest vital signs: Vital Signs Temp Pulse Resp BP BP Pulse Ox 10/31/19 08:37 98.1 F 87 18 101/63 98 10/31/19 02:05 98.9 F 110 H 20 99/58 95 10/30/19 15:45 97.9 F 90 18 92/58 10/30/19 12:02 98 F 90 18 97/57 Intake and Output 10/30/19 10/31/19 10/31/19 23:59 07:59 15:59 Intake Total 240 Balance 240 Intake: Oral 120 Intake, Free Water 120 Other: Total, Intake Amount 120 # Voids Void 1 - Exam Cardiovascular: Present: Regular rate Lungs: Present: Clear to auscultation, Normal air movement Abdomen: Present: normal appearance, soft Vulva: both: normal Uterus: Present: normal, firm Incision: Present: normal, skin (on right side: light bleeding present, steri strips replaced) Comments: scant lochia
[2019-10-31] MEDS: IBUPROFEN 800 MG TAB PO PRN ×2 (14:17→23:24)
--- NOTE | 2019-10-31 19:09 | Discharge Summary ---
Providers - Providers Date of Admission: 10/29/19 05:32 Date of discharge: 11/01/19 Attending physician: ARA CAMPOS MD Primary care physician: ARA CAMPOS MD Hospitalization Reason for admission: active labor, IUP at term Delivery: Procedure: primary low transverse Episiotomy: none Laceration: none Incision: normal, dry, intact, other (steri strips in place) Other procedures: none complications: none Discharge diagnosis: IUP at term delivered [place] baby: female Hospital course: Uncomplicated Condition at discharge: Stable Disposition: DC-01 TO HOME OR SELFCARE - Discharge Diagnoses (1) S/P primary low transverse Status: Acute (2) Anemia due to blood loss, acute Status: Acute Comment: Asymptomatic Continue taking your iron pills and vitamin at home Eat iron-rich foods Plan - Discharge Medications Prescriptions: Ibuprofen [Motrin] 600 mg PO Q8H PRN #60 tablet PRN Reason: Pain oxyCODONE /ACETAMINOPHEN [Percocet 5/325] 1 tab PO Q6HR PRN #20 tablet PRN Reason: Pain - Provider Discharge Summary Activity: routine, no sex for 6 weeks, no heavy lifting 4 weeks, no strenuous exercise Diet: routine Instructions: routine Additional instructions: [] Smoking cessation referral if applicable(refer to patient education folder for contact #) [] Refer to [facility] Booklet Call your doctor immediately for: * Fever > 100.5 * Heavy vaginal bleeding ( >1 pad per hour) * Severe persistent headache * Shortness of breath * Reddened, hot, painful area to leg or breast * Drainage or odor from incision. * Keep incision clean and dry at all times and follow doctor's instructions regarding bathing/showering - Follow up plan Follow up: ARA CAMPOS MD [Primary Care Provider] - 7 Days (Follow-up at [facility] as needed or in 1 week for incision check.)
[2019-11-01] MEDS: IBUPROFEN 800 MG TAB PO PRN (05:45)
[2019-11-01] MEDS ORDERED: LEVOTHYROXINE 75 MCG TAB PO SCH (06:00)
[2019-11-01] MEDS ORDERED: LEVOTHYROXINE 150 MCG TAB PO SCH (06:00)
[2019-11-01] MEDS: HYDROcodone/ACETAMINOPHEN 5-325 MG TAB PO PRN (08:21)
[2019-11-01 11:37] VITALS: BP 105/79
== END 2019-11-01 11:14 | disposition home or self-care (01) | DRG 787 ==
LOC: TRG 05:31 → LD 05:32 → OB 21:09
PROVIDERS: ADMIT Obstetrics & Gynecology; ATTEND Obstetrics & Gynecology
PROC: 10D00Z1 Extraction of Products of Conception, Low, Open Approach (ICD-10-PCS; principal; 2019-10-29)
DX: O76 Abnormality in fetal heart rate and rhythm complicating labor and delivery (principal); D62 Acute posthemorrhagic anemia; O99.02 Anemia complicating childbirth; O62.1 Secondary uterine inertia; O99.284 Endocrine, nutritional and metabolic diseases complicating childbirth; E03.9 Hypothyroidism, unspecified; O99.214 Obesity complicating childbirth; O77.0 Labor and delivery complicated by meconium in amniotic fluid; E66.9 Obesity, unspecified; Z3A.39 39 weeks gestation of pregnancy; Z37.0 Single live birth; Z82.49 Family history of ischemic heart disease and other diseases of the circulatory system
CPT/HCPCS: 36415; 85014; 85018; 85025; 85027; 86850; 86900; 86901; 88307; G0378; J0290; J0330; J0690; J1885; J2405; J2590; J2704; J2765; J3010; J3105; J3490; J7120

== ENCOUNTER 2021-07-22 04:08 | Inpatient (IN) | payer OTHER ==
[2021-07-22] MEDS ORDERED: FAMOTIDINE 20 MG/2 ML INJ IV ONE (04:56)
[2021-07-22] MEDS ORDERED: METOCLOPRAMIDE 10 MG/2 ML INJ IV ONE (04:56)
[2021-07-22] MEDS ORDERED: BICITRA ORAL LIQD 30ML PO ONE (04:56)
[2021-07-22] MEDS: LACTATED RINGERS 1,000 ML IV SCH ×2 (05:00→10:32)
[2021-07-22] MEDS ORDERED: OXYTOCIN DRIP 30 UNITS/500 ML BAG IV SCH (05:00)
[2021-07-22] MEDS ORDERED: ceFAZolin/STERILE WATER 2 GM/20 ML SYRINGE IV NR (05:33)
[2021-07-22 05:39] LABS: Basophils # (Auto) 0.1 K/mm3 (0.0-0.1); Basophils % (Auto) 0.9 % (0.0-1.8); Eosinophils % (Auto) 0.3 % (0.0-4.3); Hematocrit 35.1 % (30.3-42.9); Hemoglobin 10.8 gm/dl (10.1-14.3); Lymphocytes # (Auto) 1.4 K/mm3 (1.2-5.4); Mean Corpuscular HGB Conc 31 % (30-34); Mean Corpuscular Volume 73 fl (79-97); Monocytes # (Auto) 0.6 K/mm3 (0.0-0.8); Monocytes % (Auto) 6.8 % (0.0-7.3)
[2021-07-22 05:40] LABS: Red Cell Distribution Width 21.8 % (13.2-15.2)
[2021-07-22] MEDS ORDERED: ONDANSETRON 4 MG/2 ML INJ ONE (05:43)
[2021-07-22 05:44] LABS: Platelet Count 117 K/mm3 (140-440)
[2021-07-22] MEDS ORDERED: BUTORPHANOL 2 MG/1 ML INJ IV PRN ×2 (05:44)
[2021-07-22] MEDS ORDERED: PROMETHAZINE 25 MG RECT SUPP PR PRN ×2 (05:44→08:00)
[2021-07-22] MEDS ORDERED: LOPERAMIDE 2 MG CAP PO PRN (05:44)
[2021-07-22] MEDS ORDERED: miSOPROStol 200 MCG TAB PR PRN (05:44)
[2021-07-22] MEDS ORDERED: ePHEDrine SULFATE 50 MG/1 ML INJ IV PRN (05:44)
[2021-07-22] MEDS ORDERED: ACETAMINOPHEN 325 MG TAB PO PRN (05:44)
[2021-07-22] MEDS ORDERED: CARBOPROST TROMETHAMINE 250 MCG/1 ML INJ IM PRN (05:44)
[2021-07-22] MEDS ORDERED: NalbUPHINE 10 MG/1 ML INJ IV PRN (05:44)
[2021-07-22] MEDS ORDERED: OXYTOCIN 10 UNIT/1 ML INJ IM PRN (05:44)
[2021-07-22] MEDS ORDERED: fentaNYL 100 MCG/2 ML INJ IV PRN (05:44)
[2021-07-22] MEDS ORDERED: NALOXONE 0.4 MG/1 ML INJ IV PRN ×2 (05:44→08:00)
[2021-07-22] MEDS ORDERED: METHYLERGONOVINE MALEATE 0.2 MG/ML VIAL IM PRN (05:44)
[2021-07-22] MEDS ORDERED: BUPIVACAINE/PF (0.5%) 5 MG/1 ML 30 ML VIAL INFILTRATI ONE (05:45)
--- NOTE | 2021-07-22 05:46 | Anesthesia Day of Surgery ---
Anesthesia Day of Surgery - Day of Surgery Patient Examined: Yes Patient H&P Reviewed: Yes Patient is NPO: Yes Beta Blockers: No Cardiac Clearance: No Pulmonary Clearance: No Yaniv's Test: N/A
--- NOTE | 2021-07-22 05:47 | Anesthesia Consultation ---
Anesthesia Consult and Med Hx Date of service: 07/22/21 - Airway Anesthetic Teeth Evaluation: Good ROM Head & Neck: Adequate Mental/Hyoid Distance: Adequate Mallampati Class: Class II Intubation Access Assessment: Probably Good - Pulmonary Exam CTA: Yes - Cardiac Exam Cardiac Exam: RRR - Pre-Operative Health Status ASA Pre-Surgery Classification: ASA2, Emergency Proposed Anesthetic Plan: Spinal Nerve Block: TAP - Pulmonary Hx Smoking: No Hx Asthma: No Hx Respiratory Symptoms: No SOB: No COPD: No Hx Pneumonia: No Hx Sleep Apnea: No - Cardiovascular System Hx Hypertension: No Hx Coronary Artery Disease: No Hx Heart Attack/AMI: No Hx Angina: No Hx Percutaneous Transluminal Coronary Angioplasty (PTCA): No Hx Cardia Arrhythmia: No Hx Pacemaker: No Hx Internal Defibrillator: No Hx Valvular Heart Disease: No Hx Heart Murmur: No Hx Peripheral Vascular Disease: No - Central Nervous System Hx Neuromuscular Disorder: No Hx Seizures: No CVA: No Hx Back Pain: No Hx Psychiatric Problems: No - Gastrointestinal Hx Ulcer: No Hx Gastroesophageal Reflux Disease: No - Endocrine Hx Renal Disease: No Hx End Stage Renal Disease: No Hx Cirrhosis: No Hx Liver Disease: No Hx Insulin Dependent Diabetes: No Hx Non-Insulin Dependent Diabetes: No Hx Thyroid Disease: No Hx Hypothyroidism: Yes (ON MEDS) Hx Hyperthyroidism: No - Hematic Hx Anemia: Yes Hx Sickle Cell Disease: No - Other Systems Hx Alcohol Use: No Hx Substance Use: No Hx Cancer: No Hx Obesity: No - Additional Comments Anesthesia Medical History Comments: previous c/s x1 in labor
--- NOTE | 2021-07-22 05:56 | History and Physical Report ---
History of Present Illness Date of examination: 07/22/21 Chief complaint: previous section active labor spontaneous rupture of membranes History of present illness: 30yo at 40.0 weeks , previous c/sectionx1 with contractions and ruptured membranes. Past History Past Medical History: no pertinent history Past Surgical History: section Social history: no significant social history - Obstetrical History Expected Date of Delivery: 07/22/21 Actual Gestation: 40 Week(s) 0 Day(s) : 2 Para: 1 Medications and Allergies Allergies Allergy/AdvReac Type Severity Reaction Status Date / Time No Known Allergies Allergy Verified 10/29/19 05:38 Home Medications Medication Instructions Recorded Confirmed Last Taken Type Ibuprofen [Motrin] 600 mg PO Q8H PRN #60 tablet 10/30/19 Unknown Rx Levothyroxine [Synthroid] 75 mcg PO QAM 10/30/19 10/30/19 10/28/19 History oxyCODONE /ACETAMINOPHEN [Percocet 1 tab PO Q6HR PRN #20 tablet 10/30/19 Unknown Rx 5/325] Active Meds: Active Medications Cefazolin Sodium (Cefazolin/Sterile Water 2 Gm/20 Ml Syringe) 2 gm IV PREOP NR Stop: 07/22/21 06:59 Lactated Ringer's (Lactated Ringers) 1,000 mls @ 2,250 mls/hr IV PREOP PRANAV Stop: 07/23/21 05:27 Oxytocin/Sodium Chloride (Pitocin/Ns 30 Unit/500ml) 30 units in 500 mls @ 0 mls/hr IV TITR PRANAV; Protocol - Vital Signs Vital signs: Vital Signs Pulse Pulse Ox 72 84 07/22/21 04:31 07/22/21 04:31 Temp Pulse Resp BP Pulse Ox 98.7 F 98 H 20 119/78 100 07/22/21 04:44 07/22/21 05:47 07/22/21 04:44 07/22/21 04:36 07/22/21 05:47 - Physical Exam Breasts: Positive: deferred Cardiovascular: Regular rate Lungs: Positive: Clear to auscultation Abdomen: Positive: normal appearance, soft, normal bowel sounds Uterus: Positive: enlarged Extremities: Positive: normal Deep Tendon Reflex Grade: Normal +2 - Obstetrical FHR: category 1 Cervical Dilatation: 2 Cervical Effacement Percentage: 80 station: -3 Uterine Contraction Frequency (min): 2 Uterine Contraction Pattern: Regular Results Result Diagrams: 07/22/21 04:57 Abnormal lab results 07/22/21 Range/Units 04:57 MCV 73 L (79-97) fl MCH 22 L (28-32) pg RDW 21.8 H (13.2-15.2) % Plt Count 117 L (140-440) K/mm3 Seg Neutrophils % 77.0 H (40.0-70.0) % All other labs normal. 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
[2021-07-22] MEDS ORDERED: WATER FOR IRRIG STERILE 1,500 ML BOTTLE IR ONE (06:00)
[2021-07-22] MEDS ORDERED: SODIUM CHLORIDE 0.9% IRR 1,500 ML BOTTLE IR ONE (06:00)
[2021-07-22] MEDS ORDERED: ceFAZolin/STERILE WATER 2 GM/20 ML SYRINGE IV ONE (06:00)
--- NOTE | 2021-07-22 06:00 | Procedure Note ---
OB Delivery Note - Delivery Date of Delivery: 07/22/21 Surgeon: JUVE MARVIN - Section Preop diagnosis: other (labor,spontaneous rupture of membranes) Postop diagnosis: same section procedure: repeat low transverse Disposition: PACU Complications: none Narrative: Preop diagnosis: IUP at 40.0 weeks, previous c/sectionx1, SROM,labor Postop diagnosis: Same, delivered Procedure: Repeat low transverse section via Pfannenstiel incision Surgeon: Dr. Juve Marvin Anesthesia spinal Complications none EBL 947ml IV fluids 1500mL Urine output 200mL, clear Drains Armstrong to gravity Findings: Viable male with weight 3550gms and 8/9, normal uterus tubes and ovaries bilaterally Procedure: Patient was consented in OB triage, taken to the operating room where she received excellent spinal anesthesia. She was then placed in the dorsal supine position with a leftward tilt. The abdomen was prepped and draped in a sterile fashion, and a timeout was verified. Adequate anesthesia was confirmed prior to the skin incision. A Pfannenstiel skin incision was made with a scalpel taken down to the underlying structures and the fascia was incised in the midline. The incision was extended laterally with curved Merida scissors, the superior and inferior aspects of the fascial incisions were grasped with Brenden clamps and the rectus muscles dissected sharply. The abdomen was entered bluntly in the midline carried down inferiorly with good visualization of the bladder. The vesicouterine peritoneum was tented with Samoan forceps and incised in the midline with Metzenbaum scissors and the vesicouterine peritoneum taken down sharply. The uterine incision was then made sharply with a scalpel. The inferior and superior aspect of the uterine incisions were extended bluntly, the baby's head was delivered atraumatically. The remainder of the delivery was uncomplicated, no nuchal cord. The cord was clamped and cut and baby handed to waiting NICU team. An intact placenta with three-vessel cord delivered manually. The uterus was then cleared of all clots and debris and the uterus exteriorized. The uterine incision was closed in 2 layers of 0 vicryl with excellent hemostasis. The abdomen was then irrigated with warm normal saline and the uterus placed back into the abdomen atraumatically. A second look at the uterine incision assured hemostasis. The peritoneum was closed with 3-0 Vicryl, the rectus muscles approximated with 3-0 Vicryl, and the fascia closed with 0 Vicryl in the usual fashion. The subcuticular structures were closed with interrupted sutures of 3-0 Vicryl and the skin closed with mary second to extensive subcuticular bleeding and prophylaxis from seroma or incisional hematoma. A pressure dressing was applied A pressure dressing was applied. All sponge needle and instrument counts were correct x2. There were no complications. Mom and baby stable to PACU. EBL 947 mL Maycol Marvin MD
[2021-07-22] MEDS ORDERED: LACTATED RINGERS 1,000 ML ONE ×2 (06:27→07:19)
[2021-07-22] MEDS ORDERED: dexAMETHasone 20 MG/5 ML VIAL ONE (06:27)
[2021-07-22] MEDS ORDERED: PHENYLEPHRINE/NS 1,000 MCG/10 ML SYRINGE (OR USE) IV ONE (06:30)
[2021-07-22] MEDS ORDERED: KETOROLAC 30 MG/1 ML INJ ONE (06:30)
[2021-07-22] MEDS ORDERED: ePHEDrine SULFATE 50 MG/1 ML INJ ONE (06:48)
[2021-07-22] MEDS ORDERED: LANOLIN/ZINC/DIMETHICONE (LANSINOH) 7 GM TP PRN (07:13)
[2021-07-22] MEDS ORDERED: KETOROLAC 30 MG/1 ML INJ IV PRN ×2 (07:13→08:00)
[2021-07-22] MEDS ORDERED: IBUPROFEN 600 MG TAB PO PRN (07:13)
[2021-07-22] MEDS ORDERED: HYDROcodone/ACETAMINOPHEN 5-325 MG TAB PO PRN (07:30)
[2021-07-22] MEDS ORDERED: WITCH HAZEL/ GLYCERIN PAD TP PRN (07:30)
[2021-07-22] MEDS ORDERED: ACETAMINOPHEN 650 MG RECT SUPP PR PRN (08:00)
[2021-07-22] MEDS ORDERED: MORPHINE 4 MG/1 ML INJ IV PRN (08:00)
[2021-07-22] MEDS ORDERED: ONDANSETRON 4 MG/2 ML INJ IV PRN (08:00)
[2021-07-22] MEDS ORDERED: MORPHINE 2 MG/1 ML INJ IV PRN (08:00)
[2021-07-22 19:03] LABS: Hematocrit 28.4 % (30.3-42.9); Hemoglobin 8.5 gm/dl (10.1-14.3)
[2021-07-22 20:53] LABS: Hematocrit 28.3 % (30.3-42.9); Hemoglobin 8.7 gm/dl (10.1-14.3); Mean Corpuscular HGB Conc 31 % (30-34); Mean Corpuscular Volume 73 fl (79-97); Platelet Count 106 K/mm3 (140-440); Red Blood Count 3.87 M/mm3 (3.65-5.03)
[2021-07-22 20:54] LABS: Red Cell Distribution Width 21.1 % (13.2-15.2)
[2021-07-22] MEDS: IBUPROFEN 800 MG TAB PO PRN (21:09)
--- NOTE | 2021-07-22 21:29 | Event Note ---
Date: 07/22/21 PLT= 117 at 4:57 a.m. today. PLT= 106 at 6:31 p.m. kerri. This patient is clinically asymptomatic.
[2021-07-22] MEDS ORDERED: SENNOSIDES 8.6 MG TAB PO PRN (22:00)
[2021-07-22 23:43] LABS: Total Cells Counted 100
[2021-07-22 23:45] LABS: Anisocytosis 1+; Ovalocytes Few; Platelet Estimate Consistent w Auto
[2021-07-23] MEDS: oxyCODONE /ACETAMINOPHEN 5-325MG TAB PO PRN ×3 (02:43→14:34)
[2021-07-23] MEDS ORDERED: LEVOTHYROXINE 112 MCG TAB PO SCH (06:00)
[2021-07-23] MEDS: IBUPROFEN 800 MG TAB PO PRN (07:06)
[2021-07-23] MEDS: LEVOTHYROXINE 75 MCG TAB PO SCH (07:08)
--- NOTE | 2021-07-23 10:23 | Post Anesthesia Evaluation ---
- Post Anesthesia Evaluation Patient Participated: Yes Airway Patent: Yes Stable Respiratory Function: Yes Nausea/Vomiting: No Temp > 96.8F: Yes Pain Manageable: Yes Adequeate Hydration: Yes Anesthesia Complications: No Block Receding Appropriately: Yes
--- NOTE | 2021-07-23 10:59 | Progress Note ---
Assessment and Plan POD#1 C/S with pain not well controlled; Thrombocytopenia improved since yesterday, hgb decreased. 1. Nurse told to give pt po pain med and will re-eval later 2. Pt to be given oral gas med 3. routine post op care 4. May give iron after pt has flatus BID and vitamin C for asymptomatic anemia. Will repeat CBC in am for both platelet and hgb trends plan of care discussed with pt and all questions encouraged and answered Subjective Date of service: 07/23/21 Principal diagnosis: POD#1 C/S with thrombocytopenia Interval history: Pt c/o pain and no flatus. Pt was ambulant in the room when I evaluated her. Denies nausea or vomiting or fever or chills. Pt is voiding without difficulty. Vag bleed less than a period. pt is bottle feeding Objective - Constitutional Vitals: Vital Signs - 12hr 07/23/21 07/23/21 07/23/21 00:05 00:15 01:30 Temperature 98.4 F Pulse Rate 76 Respiratory 18 Rate Blood Pressure Blood Pressure 94/58 [Left] O2 Sat by Pulse 97 Oximetry O2 Sat by Pulse 98 98 Oximetry [ Bilateral] 07/23/21 07/23/21 07/23/21 04:20 06:03 07:44 Temperature 97.9 F Pulse Rate 72 Respiratory 17 Rate Blood Pressure 99/61 Blood Pressure [Left] O2 Sat by Pulse 98 Oximetry O2 Sat by Pulse 97 98 Oximetry [ Bilateral] General appearance: Present: mild distress - Neck Neck: normal ROM - Respiratory Respiratory effort: normal - Breasts Breasts: deferred - Cardiovascular Rhythm: regular Extremities: No edema - Gastrointestinal General gastrointestinal: Present: soft, non-tender, other (Dressing C/D/I and in place) - Genitourinary Female genitourinary: other (Fundus non-tender, 1cm below umbilicus; lochia moderate) - Integumentary Integumentary: warm, dry - Neurologic Neurologic: moves all extremities - Labs CBC & Chem 7: 07/23/21 12:15 Labs: Abnormal lab results 07/22/21 07/22/21 Range/Units 18:31 18:31 WBC 13.6 H (4.5-11.0) K/mm3 Hgb 8.5 L 8.7 L (10.1-14.3) gm/dl Hct 28.4 L D 28.3 L (30.3-42.9) % MCV 73 L (79-97) fl MCH 23 L (28-32) pg RDW 21.1 H (13.2-15.2) % Plt Count 106 L (140-440) K/mm3 Seg Neuts % (Manual) 92.0 H (40.0-70.0) % Lymphocytes % (Manual) 7.0 L (13.4-35.0) % Seg Neutrophils # Man 12.5 H (1.8-7.7) K/mm3 Lymphocytes # (Manual) 1.0 L (1.2-5.4) K/mm3 Medications & Allergies - Medications Allergies/Adverse Reactions: Allergies No Known Allergies Allergy (Verified 10/29/19 05:38) Home Medications: Home Medications Medication Instructions Recorded Confirmed Last Taken Type Ibuprofen [Motrin] 600 mg PO Q8H PRN #60 tablet 10/30/19 07/23/21 07/21/21 Rx Levothyroxine [Synthroid] 75 mcg PO QAM 10/30/19 07/23/21 07/21/21 History oxyCODONE /ACETAMINOPHEN [Percocet 1 tab PO Q6HR PRN #20 tablet 10/30/1907/1007/21/21 Rx 5/325] Ibuprofen [Motrin] 600 mg PO Q8H PRN #60 tablet 07/22/21 Unknown Rx oxyCODONE /ACETAMINOPHEN [Percocet 1 tab PO Q6HR PRN #20 tablet 07/22/21 Unknown Rx 5/325] Active Medications: Generic Name Dose Route Start Last Admin Trade Name Freq PRN Reason Stop Dose Admin Acetaminophen 650 mg 07/22/21 05:44 Acetaminophen 325 Mg Tab PO Q4H PRN Pain, Mild (1-3) Acetaminophen 650 mg 07/22/21 08:00 Acetaminophen 650 Mg Rect Supp VT Q4H PRN Fever >100.5/BAH Hydrocodone Bitart/Acetaminophen 1 each 07/22/21 07:30 Hydrocodone/Acetaminophen 5-325 Mg Tab PO Q6H PRN Pain, Moderate (4-6) Butorphanol Tartrate 1 mg 07/22/21 05:44 Butorphanol 2 Mg/1 Ml Inj IV Q2H PRN Pain, Moderate(4-6) LABOR PAIN Butorphanol Tartrate 2 mg 07/22/21 05:44 Butorphanol 2 Mg/1 Ml Inj IV Q2H PRN Pain , Severe (7-10) Carboprost Tromethamine 250 mcg 07/22/21 05:44 Carboprost Tromethamine 250 Mcg/1 Ml Inj IM ONCE PRN Uterine Bleeding Ephedrine Sulfate 10 mg 07/22/21 05:44 Ephedrine Sulfate 50 Mg/1 Ml Inj IV Q2M PRN Hypotension Fentanyl 100 mcg 07/22/21 05:44 Fentanyl 100 Mcg/2 Ml Inj IV Q2H PRN Pain,Severe (7-10) LABOR PAIN Oxytocin/Sodium Chloride 30 units in 500 mls @ 0 mls/hr 07/22/21 05:00 Pitocin/Ns 30 Unit/500ml IV TITR PRANAV Protocol As Directed Ibuprofen 800 mg 07/22/21 08:00 07/23/21 07:06 Ibuprofen 800 Mg Tab PO 800 mg Q6H PRN Administration Pain, Moderate (4-6) Ketorolac Tromethamine 15 mg 07/22/21 08:00 Ketorolac 30 Mg/1 Ml Inj IV 07/27/21 07:59 Q6H PRN Pain, Mild (1-3) Ketorolac Tromethamine 30 mg 07/22/21 07:13 Ketorolac 30 Mg/1 Ml Inj IV 07/27/21 07:12 Q6H PRN Pain, Moderate (4-6) Levothyroxine Sodium 75 mcg 07/23/21 07:30 07/23/21 07:08 Levothyroxine 75 Mcg Tab PO 75 mcg DAILY@0600 PRANAV Administration Loperamide HCl 2 mg 07/22/21 05:44 Loperamide 2 Mg Cap PO ONCE PRN give with Hemabate Magnesium Hydroxide 30 ml 07/22/21 22:00 Magnesium Hydroxide (Mom) Oral Liqd Udc PO QHS PRN Constip Unrelieved By Senna Methylergonovine Maleate 0.2 mg 07/22/21 05:44 Methylergonovine Maleate 0.2 Mg/Ml Vial IM ONCE PRN Uterine Bleeding Misoprostol 800 mcg 07/22/21 05:44 Misoprostol 200 Mcg Tab VT ONCE PRN Uterine Bleeding Morphine Sulfate 2 mg 07/22/21 08:00 07/22/21 12:56 Morphine 2 Mg/1 Ml Inj IV 2 mg Q4H PRN Administration Pain, Moderate (4-6) Morphine Sulfate 4 mg 07/22/21 08:00 Morphine 4 Mg/1 Ml Inj IV Q4H PRN Pain , Severe (7-10) Multi-Ingredient Ointment 1 applic 07/22/21 07:13 07/23/21 08:53 Lanolin/Zinc/Dimethicone (Lansinoh) 7 Gm TP 1 applic PRN PRN Administration dryness/cracking Nalbuphine HCl 10 mg 07/22/21 05:44 Nalbuphine 10 Mg/1 Ml Inj IV Q2H PRN Pain, Moderate (4-6) Naloxone HCl 0.1 mg 07/22/21 08:00 Naloxone 0.4 Mg/1 Ml Inj IV Q2MIN PRN Res Rate </= 8 or 02 SAT < 92% Ondansetron HCl 4 mg 07/22/21 08:00 Ondansetron 4 Mg/2 Ml Inj IV Q8H PRN Nausea And Vomiting Oxycodone/Acetaminophen 1 tab 07/22/21 08:00 07/23/21 08:58 Oxycodone /Acetaminophen 5-325mg Tab PO 1 tab Q6H PRN Administration Pain, Moderate (4-6) Oxytocin 10 unit 07/22/21 05:44 Oxytocin 10 Unit/1 Ml Inj IM ONCE PRN Uterine Bleeding Promethazine HCl 25 mg 07/22/21 08:00 Promethazine 25 Mg Rect Supp VT Q6H PRN N/V IF NPO AND NO IV ACCESS Senna 17.2 mg 07/22/21 22:00 Sennosides 8.6 Mg Tab PO QHS PRN Constipation Simethicone 80 mg 07/22/21 08:00 Simethicone 80 Mg Chew Tab PO Q6H PRN Gas pain Sodium Chloride 10 ml 07/22/21 08:00 Sodium Chloride 0.9% 10 Ml Flush Syringe IV 08/03/21 07:59 PRN NR Witch Reyna/Glycerin 1 each 07/22/21 07:30 07/23/21 08:53 Witch Reyna/ Glycerin Pad TP 1 each PRN PRN Administration Hemorrhoids/cleansing/soothing
[2021-07-23] MEDS: SIMETHICONE 80 MG CHEW TAB PO PRN (12:08)
[2021-07-23 12:37] LABS: Basophils # (Auto) 0.1 K/mm3 (0.0-0.1); Basophils % (Auto) 0.7 % (0.0-1.8); Eosinophils % (Auto) 0.2 % (0.0-4.3); Hematocrit 26.2 % (30.3-42.9); Lymphocytes # (Auto) 2.2 K/mm3 (1.2-5.4); Lymphocytes % (Auto) 19.5 % (13.4-35.0); Mean Corpuscular HGB Conc 31 % (30-34); Mean Corpuscular Volume 73 fl (79-97); Monocytes % (Auto) 8.7 % (0.0-7.3); Platelet Count 112 K/mm3 (140-440); Red Blood Count 3.61 M/mm3 (3.65-5.03)
[2021-07-23 12:38] LABS: Red Cell Distribution Width 21.8 % (13.2-15.2)
[2021-07-23] MEDS: ASCORBIC ACID 500 MG TAB PO SCH ×2 (17:31→21:12)
[2021-07-23] MEDS: FERROUS SULFATE 325 MG TAB PO SCH (21:12)
[2021-07-23] MEDS: MAGNESIUM HYDROXIDE (MOM) ORAL LIQD UDC PO PRN (21:14)
[2021-07-23] MEDS ORDERED: DOCUSATE SODIUM 100 MG CAP PO PRN (22:00)
[2021-07-24] MEDS: LEVOTHYROXINE 75 MCG TAB PO SCH (05:16)
[2021-07-24] MEDS: IBUPROFEN 800 MG TAB PO PRN ×2 (05:16→15:56)
[2021-07-24] MEDS: FERROUS SULFATE 325 MG TAB PO SCH ×2 (10:10→22:36)
[2021-07-24] MEDS: oxyCODONE /ACETAMINOPHEN 5-325MG TAB PO PRN ×2 (10:10→22:44)
[2021-07-24] MEDS: ASCORBIC ACID 500 MG TAB PO SCH ×2 (10:10→22:37)
[2021-07-24 10:49] LABS: Basophils # (Auto) 0.1 K/mm3 (0.0-0.1); Basophils % (Auto) 1.1 % (0.0-1.8); Eosinophils # (Auto) 0.1 K/mm3 (0.0-0.4); Eosinophils % (Auto) 1.6 % (0.0-4.3); Hematocrit 25.5 % (30.3-42.9); Hemoglobin 7.9 gm/dl (10.1-14.3); Lymphocytes # (Auto) 1.8 K/mm3 (1.2-5.4); Lymphocytes % (Auto) 21.9 % (13.4-35.0); Mean Corpuscular HGB Conc 31 % (30-34); Mean Corpuscular Volume 74 fl (79-97); Monocytes # (Auto) 0.6 K/mm3 (0.0-0.8); Platelet Count 121 K/mm3 (140-440); Red Blood Count 3.45 M/mm3 (3.65-5.03)
[2021-07-24 10:52] LABS: Red Cell Distribution Width 21.9 % (13.2-15.2)
--- NOTE | 2021-07-24 12:03 | Progress Note ---
Assessment and Plan A: POD #2 Asymptomatic Anemia Negative Flatus P: Follow Routine PostOp Orders Continue PO FeSO4 as ordered Encourage Increased Ambulation Subjective - Subjective Date of service: 07/24/21 Principal diagnosis: POD#1 C/S with thrombocytopenia Patient reports: appetite normal, voiding normally, pain well controlled, ambulating normally [place]: doing well, bottle feeding Objective - Vital Signs Latest vital signs: Vital Signs Temp Pulse Resp BP BP Pulse Ox Pulse Ox 07/24/21 08:00 98 07/24/21 07:56 97.8 F 85 20 89/57 98 07/24/21 05:14 98 07/24/21 03:15 98 07/24/21 02:10 98 07/24/21 01:09 98.2 F 76 18 96/49 96 07/23/21 23:05 97 07/23/21 21:10 97 07/23/21 20:15 98 07/23/21 16:19 97.8 F 77 20 94/43 Intake and Output 07/23/21 07/24/21 07/24/21 22:59 06:59 14:59 Intake Total 720 120 240 Balance 720 120 240 Intake: Oral 720 120 240 Other: Total, Intake Amount 120 120 240 # Voids Void 1 1 1 - Exam Breasts: Present: normal Cardiovascular: Present: Regular rate Lungs: Present: Clear to auscultation, Normal air movement Abdomen: Present: normal appearance, soft, normal bowel sounds Uterus: Present: normal, firm, fundal height below umbilicus Extremities: Present: normal Incision: Present: normal, dry, intact, other (Chani in place) - Labs Labs: Abnormal lab results 07/23/21 07/24/21 Range/Units 12:15 10:26 WBC 11.4 H (4.5-11.0) K/mm3 RBC 3.61 L 3.45 L (3.65-5.03) M/mm3 Hgb 8.0 L 7.9 L (10.1-14.3) gm/dl Hct 26.2 L 25.5 L (30.3-42.9) % MCV 73 L 74 L (79-97) fl MCH 22 L 23 L (28-32) pg RDW 21.8 H 21.9 H (13.2-15.2) % Plt Count 112 L 121 L (140-440) K/mm3 [place] % (Auto) 8.7 H 8.0 H (0.0-7.3) % [place] # (Auto) 1.0 H (0.0-0.8) K/mm3 Seg Neutrophils % 70.9 H (40.0-70.0) % Seg Neutrophils # 8.1 H (1.8-7.7) K/mm3
[2021-07-24] MEDS: MAGNESIUM HYDROXIDE (MOM) ORAL LIQD UDC PO PRN (15:55)
[2021-07-24] MEDS: SIMETHICONE 80 MG CHEW TAB PO PRN (15:55)
[2021-07-25] MEDS: IBUPROFEN 800 MG TAB PO PRN (06:14)
[2021-07-25] MEDS: LEVOTHYROXINE 75 MCG TAB PO SCH (06:14)
[2021-07-25] MEDS: oxyCODONE /ACETAMINOPHEN 5-325MG TAB PO PRN (09:21)
[2021-07-25] MEDS: ASCORBIC ACID 500 MG TAB PO SCH (09:22)
[2021-07-25] MEDS: FERROUS SULFATE 325 MG TAB PO SCH (09:22)
--- NOTE | 2021-07-25 10:44 | Progress Note ---
Assessment and Plan A: S/P repeat LTCS Asymptomatic anemia and thrombocytopenia P: D/C home today per pt's request Subjective - Subjective Date of service: 07/25/21 Principal diagnosis: POD#3 C/S with thrombocytopenia Patient reports: appetite normal, voiding normally, pain well controlled, flatus, ambulating normally : doing well, bottle feeding Objective - Vital Signs Latest vital signs: Vital Signs Temp Pulse Resp BP BP Pulse Ox Pulse Ox 07/25/21 08:00 98 07/25/21 07:54 98.5 F 79 20 105/69 99 07/25/21 06:13 98 07/25/21 03:20 97 07/25/21 01:45 97 07/25/21 00:00 98.6 F 69 18 101/66 07/24/21 23:40 97 07/24/21 22:30 97 07/24/21 19:55 98 07/24/21 16:10 97.9 F 71 20 96/55 99 Intake and Output 07/24/21 07/25/21 07/25/21 22:59 06:59 14:59 Intake Total 200 Balance 200 Intake: Intake, Free Water 200 - Exam Breasts: Present: normal Abdomen: Present: normal appearance, soft, normal bowel sounds Vulva: both: normal Uterus: Present: normal, firm, fundal height below umbilicus Extremities: Present: normal Incision: Present: normal, dry, intact - Labs Labs: Abnormal lab results 07/24/21 Range/Units 10:26 RBC 3.45 L (3.65-5.03) M/mm3 Hgb 7.9 L (10.1-14.3) gm/dl Hct 25.5 L (30.3-42.9) % MCV 74 L (79-97) fl MCH 23 L (28-32) pg RDW 21.9 H (13.2-15.2) % Plt Count 121 L (140-440) K/mm3 [place] % (Auto) 8.0 H (0.0-7.3) %
--- NOTE | 2021-07-25 10:54 | Discharge Summary ---
Providers - Providers Date of Admission: 07/22/21 05:44 Date of discharge: 07/25/21 Attending physician: JUVE MARVIN MD Primary care physician: JUVE MARVIN MD Hospitalization Reason for admission: section Delivery: Procedure: repeat low transverse Episiotomy: none Laceration: none Incision: normal, dry, intact Other procedures: none complications: other (anemia and thrombocytopenia) baby: male Hospital course: Pt was admitted to [facility] for a repeat LTCS. She was managed pp for asymptomatic anemia and thrombocytopenia. See H&P, delivery summary and pp notes. Condition at discharge: Stable Disposition: 30 STILL A PATIENT Plan - Discharge Medications Prescriptions: Ferrous Sulfate [Iron 325 MG] 325 mg PO BID #120 tablet Ibuprofen [Motrin] 600 mg PO Q8H PRN #60 tablet PRN Reason: Pain oxyCODONE /ACETAMINOPHEN [Percocet 5/325] 1 tab PO Q6HR PRN #20 tablet PRN Reason: Pain - Provider Discharge Summary Activity: routine, no sex for 6 weeks, no heavy lifting 4 weeks, no strenuous exercise Diet: other (High Fe) Instructions: routine Additional instructions: [] Smoking cessation referral if applicable(refer to patient education folder for contact #) [] Refer to [facility] Booklet Call your doctor immediately for: * Fever > 100.5 * Heavy vaginal bleeding ( >1 pad per hour) * Severe persistent headache * Shortness of breath * Reddened, hot, painful area to leg or breast * Drainage or odor from incision. * Keep incision clean and dry at all times and follow doctor's instructions regarding bathing/showering - Follow up plan Follow up: JUVE MARVIN MD [Primary Care Provider] - 14 Days Forms: [facility] Discharge Summary
[2021-07-25 12:14] VITALS: BP 111/74
== END 2021-07-25 13:50 | disposition home or self-care (01) | DRG 788 ==
LOC: TRG 04:08 → APU 04:09 → TRG 05:44 → OB 09:30
PROVIDERS: ADMIT Obstetrics & Gynecology; ATTEND Obstetrics & Gynecology
PROC: 10D00Z1 Extraction of Products of Conception, Low, Open Approach (ICD-10-PCS; principal; 2021-07-22)
DX: O34.211 Maternal care for low transverse scar from previous cesarean delivery (principal); Z37.0 Single live birth; Z20.822 Contact with and (suspected) exposure to COVID-19; O72.3 Postpartum coagulation defects; D69.6 Thrombocytopenia, unspecified; O90.81 Anemia of the puerperium; Z3A.40 40 weeks gestation of pregnancy
CPT/HCPCS: 36415; 59025; 85007; 85014; 85018; 85025; 86592; 86850; 86900; 86901; 99211; G0378; J3490; J7121; G0463; J0690; J1100; J1885; J2270; J2370; J2405; J2765; J7120; U0003